=== PATIENT | male | born 1965 | race Hispanic/Latino ===

== ENCOUNTER → 2017-05-17 | Day surgery (SDC) | payer BC ==
[~2017-05-17] MED LIST: FENTANYL CITRATE/PF 100MCG/2 ML INJ ONE; GLUCAGON FOR INJ 1 MG VIAL ONE; LIDOCAINE HCL 2% LOCAL INJ 5 ML SDV VIAL INJ ONE; MIDAZOLAM HCL 2 MG/2 ML VIAL ONE; NKM; PROPOFOL IV EMULSION 10 MG/ML 50 ML VIAL ONE
--- NOTE | 2017-05-19 06:39 | Operative Report ---
DATE OF PROCEDURE: May 17, 2017 PROCEDURE PERFORMED: Colonoscopy and polypectomy. INDICATIONS FOR COLONOSCOPY: Colorectal cancer screening, personal history of colon and father with colon cancer. MEDICATION: The patient was done under MAC. Please see anesthesiologist's note. PROCEDURE: With the patient in the left lateral decubitus position, the flexible fiberoptic Olympus colonoscope was inserted into the rectum with ease and advanced all the way to the ileocolic anastomosis. There was no evidence of recurrence. The mucosa overlying the transverse colon appeared to be within normal limits. Six polyps were hot biopsied from the descending colon. Three polyps were hot biopsied from the rectum. The scope was then retroflexed into the distal rectum and small internal hemorrhoids were noted, none of which was actively bleeding. The scope was then straightened out. The rectosigmoid area, as well as the distal rectal area were decompressed. The scope was subsequently withdrawn. The patient tolerated the procedure well. IMPRESSION 1. Anastomosis intact without any evidence of recurrence. 2. Descending colon polyps times 6, hot biopsied. 3. Rectal polyps times 3, hot biopsied. 4. Internal hemorrhoids, none actively bleeding. PLAN: Follow up histology. Initiate high-fiber and low-fat diet. Initiate high-fiber supplement. The patient will need to have a followup colonoscopy in 2-3 years. Job#: [id number] RENNY
== END | disposition home or self-care (01) ==
LOC: OR 12:11
PROVIDERS: ATTEND Internal Medicine Gastroenterology
DX: Z12.11 Encounter for screening for malignant neoplasm of colon (principal); D12.4 Benign neoplasm of descending colon; K62.1 Rectal polyp; Z85.038 Personal history of other malignant neoplasm of large intestine; Z98.0 Intestinal bypass and anastomosis status; K64.8 Other hemorrhoids; R00.1 Bradycardia, unspecified; Z01.810 Encounter for preprocedural cardiovascular examination; Z68.31 Body mass index [BMI] 31.0-31.9, adult; Z80.0 Family history of malignant neoplasm of digestive organs
CPT/HCPCS: 45384; 93005; J1610; J2001; J2250; 45378

== ENCOUNTER 2019-05-12 10:56 | Emergency (ER) | payer BC ==
[~2019-05-12] VITALS: Ht 167.6 cm; Wt 86.2 kg
[~2019-05-12 10:56] MED LIST changes: -FENTANYL CITRATE/PF 100MCG/2 ML INJ ONE; -GLUCAGON FOR INJ 1 MG VIAL ONE; -LIDOCAINE HCL 2% LOCAL INJ 5 ML SDV VIAL INJ ONE; -MIDAZOLAM HCL 2 MG/2 ML VIAL ONE; -PROPOFOL IV EMULSION 10 MG/ML 50 ML VIAL ONE
--- NOTE | 2019-05-12 12:13 | Diagnostic Imaging Report ---
EXAMINATION: FOOT 2VIEW RT - HOPD INDICATION: Trauma COMPARISON: None FINDINGS: No acute fracture or dislocation. Alignment is anatomic. Minimal dorsal foot soft tissue swelling. No substantial degenerative changes. IMPRESSION: No acute osseous injury. Signed by: Jason Edmonds MD on 05/12/2019 12:10 PM
[2019-05-12] MEDS ORDERED: TETANUS/DIPHTHERIA TOX ADULT 0.5 ML SYR IM ONE (12:15)
[2019-05-12] MEDS ORDERED: PIPER-TAZ 3.375 GM 50 ML IV ONE (12:30)
--- NOTE | 2019-05-12 12:38 | NUR ---
INITIATED TRANSFER TO [facility] NO INPATIENT BEDS AVAILABLE AT [facility] PER ELIZABET CHAUDHARI
[2019-05-12] MEDS ORDERED: TETANUS/DIPHTHERIA TOX ADULT 0.5 ML SYR ONE (12:48)
[2019-05-12] MEDS ORDERED: PIPER-TAZ 3.375 GM 50 ML ONE (12:48)
--- NOTE | 2019-05-12 13:00 | NUR ---
PT TO BE TRANSFERED TO [facility] PER PTS REQUEST, PT AND FAMILY AWARE OF POC, PT VITAL SIGNS STABLE, PT VOICES NO COMPLAINTS AT THIS TIME.
--- NOTE | 2019-05-12 13:12 | NUR ---
[facility] CALLED FOR TRANSPORT 30MIN ETA
[2019-05-12 13:46] VITALS: BP 130/85
--- NOTE | 2019-05-12 13:49 | NUR ---
REPORT TO [facility] REPORT TO SANDRA VILLEDA RN ALL QUESTIONS ANSWERED
== END 2019-05-12 13:48 | disposition other institution (70) ==
LOC: FSED 10:56
DX: M79.671 Pain in right foot (principal); L03.115 Cellulitis of right lower limb; S91.131A Puncture wound without foreign body of right great toe without damage to nail, initial encounter; W25.XXXA Contact with sharp glass, initial encounter; Y92.002 Bathroom of unspecified non-institutional (private) residence as the place of occurrence of the external cause
CPT/HCPCS: 73620; 80053; 85025; 87040; 90471; 90714; 99284; J2543

== ENCOUNTER → 2021-10-06 | Day surgery (SDC) | payer BC ==
[~2021-10-06] MED LIST changes: +HYOSCYAMINE SULFATE 0.5 MG/ML INJ ONE; +PROPOFOL IV EMULSION 10 MG/ML 20 ML VIAL ONE
[2021-10-06 09:00] VITALS: BP 122/89
== END | disposition home or self-care (01) ==
LOC: OR 06:13
PROVIDERS: ATTEND Internal Medicine Gastroenterology
DX: Z12.11 Encounter for screening for malignant neoplasm of colon (principal); D12.0 Benign neoplasm of cecum; Z85.038 Personal history of other malignant neoplasm of large intestine; Z98.0 Intestinal bypass and anastomosis status; K64.8 Other hemorrhoids; Z71.3 Dietary counseling and surveillance; Z01.810 Encounter for preprocedural cardiovascular examination; Z01.812 Encounter for preprocedural laboratory examination; Z20.822 Contact with and (suspected) exposure to COVID-19; Z68.30 Body mass index [BMI] 30.0-30.9, adult; Z92.21 Personal history of antineoplastic chemotherapy; Z86.16 Personal history of COVID-19; Z80.0 Family history of malignant neoplasm of digestive organs
CPT/HCPCS: 45380; 45384; 45385; 93005; J1980; J2704; U0002; 45378

== ENCOUNTER 2022-12-04 08:55 | Emergency (ER) | payer BC, OTHER ==
[~2022-12-04] VITALS: Ht 167.6 cm; Wt 86.2 kg
[~2022-12-04 08:55] MED LIST changes: -HYOSCYAMINE SULFATE 0.5 MG/ML INJ ONE; -PROPOFOL IV EMULSION 10 MG/ML 20 ML VIAL ONE
[2022-12-04 09:00] VITALS: O2SAT 97
[2022-12-04] MEDS ORDERED: DOXYCYCLINE HY100 MG PO (09:54)
[2022-12-04] MEDS ORDERED: TERBINAFINE HC250 MG PO (09:55)
== END 2022-12-04 10:30 | disposition home or self-care (01) ==
LOC: FSED 08:56
DX: M79.671 Pain in right foot (principal); L03.115 Cellulitis of right lower limb; B35.3 Tinea pedis; Z85.038 Personal history of other malignant neoplasm of large intestine
CPT/HCPCS: 99282